=== PATIENT | male | born 1990 | race Two or more races ===

== ENCOUNTER 2020-12-17 10:17 | Emergency (ER) | payer OTHER ==
[~2020-12-17] VITALS: Ht 172.7 cm; Wt 68.0 kg
[2020-12-17] MEDS ORDERED: KETOROLAC TROME10 MG PEG (13:27)
[2020-12-17] MEDS ORDERED: FLOMAX0.4 MG PO (13:27)
[2020-12-17] MEDS ORDERED: ANUSOL-HC25 MG RC (13:27)
== END 2020-12-17 13:38 | disposition home or self-care (01) ==
LOC: FSED 10:51
DX: K62.5 Hemorrhage of anus and rectum (principal); R10.9 Unspecified abdominal pain; N20.0 Calculus of kidney
CPT/HCPCS: 74176; 99284